=== PATIENT | male | born 2005 | race Caucasian/White ===

== ENCOUNTER 2024-04-18 13:29 | Inpatient (IN) ==
[2024-04-18] MEDS ORDERED: LORazepam 2 mg VIAL 1 ml ONE ×2 (13:45→14:38)
[2024-04-18] MEDS ORDERED: levETIRAcetam IV 3,000 MG in NS 0.9% 100 ml BAG 100 ML IVPB ONE (13:55)
[2024-04-18 14:00] LABS: ABS Eosinophils 0.1 10^3/uL (0.0-0.5); ABS Lymphocytes 1.6 10^3/uL (1.0-4.8); ABS Monocytes 0.7 10^3/uL (0.0-1.1); ABS Neutrophils 5.5 10^3/uL (1.5-7.6); ABS Nucleated RBC 0.01 10^3/ul; Eosinophil % 0.9 %; Hematocrit 44.7 % (38-53); Hemoglobin 15.4 g/dL (13.2-16.3); Lymphocyte % 19.9 %; Mean Corpuscular Hemoglobin 31.4 pg (27-33); Mean Corpuscular Hgb Conc 34.5 g/dL (31-36); Mean Corpuscular Volume 91.2 fL (80-97); Mean Platelet Volume 8.6 fL (7.5-11.2); Nucleated Red Blood Cells % 0.1 %/100WBC (0.0-0.8); Platelet Count 235 10^3/uL (150-450); White Blood Count 7.9 10^3/uL (3.6-10.2)
[2024-04-18 14:08] LABS: INR 1.17 (0.85-1.14)
[2024-04-18] MEDS ORDERED: NS 0.9% IVPB ONE (14:08)
[2024-04-18] MEDS ORDERED: LEVETIRACETAM IVPB ONE (14:08)
[2024-04-18] MEDS: NS 0.9% IVPB ONE (14:22)
[2024-04-18] MEDS: LEVETIRACETAM IVPB ONE (14:22)
[2024-04-18] MEDS: Ondansetron 4 mg VIAL 2 MG/ML 2 ml VIAL IV ONE (14:34)
[2024-04-18 14:53] LABS: Albumin 4.5 g/dL (3.2-5.2); Albumin/Globulin Ratio 1.7 (1-3); Calcium 9.7 mg/dL (8.6-10.3); Creatinine, Serum 0.93 mg/dL (0.67-1.17); Globulin 2.7 g/dL (2-4); Magnesium 1.9 mg/dL (1.9-2.7); Potassium 4.2 mmol/L (3.5-5.0); Total Bilirubin 1.5 mg/dL (0.2-1.0); Total Protein 7.2 g/dL (6.4-8.9); eGFR CKD-EPI 121.3 (>60)
[2024-04-18] MEDS: levETIRAcetam 1000MG IVPREMIX 1,000 MG/100 ML BAG IVPB SCH (20:51)
[2024-04-18] MEDS ORDERED: levETIRAcetam 1000MG IVPREMIX 1,000 MG/100 ML BAG IVPB SCH (21:00)
[2024-04-19] MEDS ORDERED: diazePAM INJ CARPUJECT 5 MG/ML SYRINGE IV PRN (00:26)
[2024-04-19 04:18] LABS: ABS Eosinophils 0.2 10^3/uL (0.0-0.5); ABS Lymphocytes 2.5 10^3/uL (1.0-4.8); ABS Monocytes 0.9 10^3/uL (0.0-1.1); ABS Neutrophils 4.8 10^3/uL (1.5-7.6); ABS Nucleated RBC 0.01 10^3/ul; Eosinophil % 2.6 %; Hematocrit 43.9 % (38-53); Lymphocyte % 29.5 %; Mean Corpuscular Hemoglobin 31.2 pg (27-33); Mean Corpuscular Hgb Conc 34.1 g/dL (31-36); Mean Corpuscular Volume 91.5 fL (80-97); Mean Platelet Volume 8.7 fL (7.5-11.2); Nucleated Red Blood Cells % 0.1 %/100WBC (0.0-0.8); Platelet Count 219 10^3/uL (150-450); Red Cell Distribution Width 12.8 % (12-17); White Blood Count 8.4 10^3/uL (3.6-10.2)
[2024-04-19 05:03] LABS: Calcium 9.4 mg/dL (8.6-10.3); Creatinine, Serum 0.97 mg/dL (0.67-1.17); Magnesium 1.9 mg/dL (1.9-2.7); Potassium 3.8 mmol/L (3.5-5.0); eGFR CKD-EPI 115.3 (>60)
[2024-04-19 05:23] LABS: Prolactin 14.2 ng/mL (1.0-20.0)
[2024-04-19 09:23] VITALS: BP 118/71
== END 2024-04-19 10:15 | DRG 53 ==
LOC: ED 13:29 → EDHOLD 16:12 → ICU 18:42
PROVIDERS: ADMIT Student in an Organized Health Care Education/Training Program; ATTEND Student in an Organized Health Care Education/Training Program